=== PATIENT | female | born 1985 | race Caucasian/White ===

== ENCOUNTER 2018-03-21 05:33 | Day surgery (SDC) | payer OTHER ==
[2018-03-21] VITALS (12 sets, daily range): BP systolic 102–133; BP diastolic 56–66; PULSE 52–64; RESP 16–28; Ht 175.3 cm; Wt 93.0 kg
[~2018-03-21] VITALS: Ht 175.3 cm; Wt 93.0 kg
[~2018-03-21 05:33] MED LIST: BUPIVACAINE 0.5%/EPI (SDV) 30 ML INJ INJ ONE
[2018-03-21] MEDS ORDERED: BUPIVACAINE 0.5%/EPI (SDV) 30 ML INJ ONE (06:59)
[2018-03-21] MEDS ORDERED: DESFLURANE 15 MIN ONE (07:00)
[2018-03-21] MEDS ORDERED: GLYCOPYRROLATE 0.4 MG INJ ONE (07:00)
--- NOTE | 2018-03-21 07:23 | PREAC ---
Date/Time of Note Date/Time of Note DATE: 03/21/18 TIME: 07:22 Anesthesia Eval and Record Evaluation Time Pre-Procedure Interview DATE: 03/21/18 TIME: 07:22 Age 33 Sex female NPO: 8 hrs Preoperative diagnosis request for sterilization Planned procedure lap btl Past Medical History Past Medical History: Includes GI: Obesity Surgery & Anesthesia Issues No known issue (D&C) Meds Anticoagulation: No Beta Clarke within 24 hr: No Reason Beta Clarke not given: Pt. not on B-Clarke No Active Prescriptions or Reported Meds Meds reviewed: Yes Allergies Coded Allergies: No Known Allergy (Unverified , 03/21/18) Allergies Reviewed: Yes Labs/Studies Labs Reviewed: Reviewed by anesthesiologist Result Diagram: 03/21/1861403/21/1815 Laboratory Tests 03/21/18 06:15 test: Negative Pre-procedure Exam Last vitals Vital Signs Date Temp Pulse Resp B/P (MAP) Pulse Ox O2 O2 Flow FiO2 Time Delivery Rate 03/21/18 98.7 62 16 120/66 100 Room Air 06:23 (84) Airway: Adequate mouth opening, Adequate thyromental dist Mallampati: Mallampati II Teeth: Normal Lung: Normal Heart: Normal ASA Physical Status ASA physical status: 2 Emergency: None Planned Anesthetic General/MAC: ETT Planned Pain Management Single shot nerve block, Parenteral pain med, Local by surgeon Pre-operative Attestations Prior to commencing anesthesia and surgery, the patient was re-evaluated, there was verification of: *The patient's identity *The results of appropriate recent lab work and preoperative vital signs *The above evaluation not changing prior to induction *Anesthetic plan, risk benefits, alternative and complications discussed with patient/family; questions answered; patient/family understands, accepts and wi shes to proceed. Luis Peters M.D. Mar 21, 2018 07:23
[2018-03-21] MEDS ORDERED: EPHEDrine SULFATE 50 MG/5 ML SYG IV PRN (07:30)
[2018-03-21] MEDS ORDERED: LABETALOL HCL 20MG INJ IV PRN (07:30)
[2018-03-21] MEDS ORDERED: DIPHENHYDRAMINE 50 MG INJ IV PRN (07:30)
[2018-03-21] MEDS ORDERED: TRIMETHOBENZAMIDE 100 MG/ML VIAL IM PRN (07:30)
[2018-03-21] MEDS ORDERED: ALBUTEROL 0.083% (NEB) 2.5 MG/3 ML AMP HHN PRN (07:30)
[2018-03-21] MEDS ORDERED: ONDANSETRON 4 MG INJ IV PRN (07:30)
[2018-03-21] MEDS ORDERED: HYDROmorphONE 1 MG/5 ML IV SYRINGE IV PRN ×3 (07:30)
[2018-03-21] MEDS ORDERED: MIDAZOLAM 1 MG/ML 2 ML INJ IV PRN (07:30)
[2018-03-21] MEDS ORDERED: hydrALAzine 20 MG INJ IV PRN (07:30)
[2018-03-21] MEDS ORDERED: FENTAnyl 50 MCG/ML VIAL IV PRN ×3 (07:30)
[2018-03-21] MEDS ORDERED: IPRATROPIUM (NEB) 0.5 MG/2.5 ML AMP HHN PRN (07:30)
[2018-03-21] MEDS ORDERED: OXYCODONE/ACETAMINOPHEN (5/325) TAB PO PRN ×2 (07:30)
[2018-03-21] MEDS ORDERED: MEPERIDINE 25 MG INJ IV PRN (07:30)
[2018-03-21] MEDS ORDERED: ROCURONIUM 50 MG INJ ONE (07:33)
[2018-03-21] MEDS ORDERED: FENTAnyl 50 MCG/ML VIAL ONE (07:33)
[2018-03-21] MEDS ORDERED: NEOSTIGMINE 3 MG/3 ML SYRINGE ONE (07:33)
[2018-03-21] MEDS ORDERED: CEFAZOLIN 1 GM INJ ONE (07:33)
[2018-03-21] MEDS ORDERED: MIDAZOLAM 1 MG/ML 2 ML INJ ONE (07:33)
[2018-03-21] MEDS ORDERED: PROPOFOL 20 ML ONE (07:33)
[2018-03-21] MEDS ORDERED: ONDANSETRON 4 MG INJ ONE (07:34)
[2018-03-21] MEDS ORDERED: DEXAMETHASONE 4 MG/ML 5 ML INJ ONE (07:36)
[2018-03-21] MEDS ORDERED: BUPIVACAINE 0.5%/EPI (SDV) 30 ML INJ INJ ONE (08:21)
[2018-03-21] MEDS ORDERED: METOCLOPRAMIDE 10 MG INJ ONE (08:37)
--- NOTE | 2018-03-21 08:43 | OPR ---
Date/Time of Note Date/Time of Note DATE: 03/21/18 TIME: 08:41 Operative Report Procedure Date: Mar 21, 2018 Preoperative Diagnosis Patient desires permanent sterilization. Postoperative Diagnosis Patient desires permanent sterilization. Operation/Procedure Performed Laparoscopic fulguration and transection of bilateral tubes. Surgeon Anam Johnson MD Dock Operator none Anesthesia Type: general Estimated Blood Loss: minimal Transfusion none Specimen none Grafts/Implants none Tubes/Drains none Complications none Pt Condition Post Procedure: stable Disposition: PACU Procedure Description FINDINGS: Normal tubes, ovaries bilaterally. Normal uterus. CONSENT: Please see my preop H and P consent in the office for the consent process. DESCRIPTION OF PROCEDURE: She was taken to operating room and general anesthesia was induced. She was prepped and draped in the usual sterile fashion in dorsal lithotomy position. Surgical time-out was done. Anterior lip of the cervix was grasped using a single-tooth tenaculum, and a HUMI was inserted in normal fashion. The tenaculum was removed. There was no bleeding from the cervix. The patient already had a Castano catheter as well. Gloves were changed. A 5 mm incision was developed inside the umbilicus. A blunt trocar was inserted in the normal fashion. Intraperitoneal position was confirmed using the laparoscope. Pneumoperitoneum was obtained. The patient was placed in Trendelenburg position. A second trocar was inserted under direct visualization of the laparoscope at the pubic hairline in the midline. A 5 cm mid ampullary region of the right tube was coagulated. Complete desiccation of the entire diameter of tube was visualized. The middle of the coagulated portion was cut. There was no bleeding. Same procedure was done on the contralateral side. All instruments removed under direct visualization of the laparoscope after pneumoperitoneum was released. There was no bleeding. Skin closed using 4-0 Monocryl. Then 10 mL 0.25% Marcaine with epinephrine was injected at the incision sites. HUMI was removed. There was no bleeding from the vagina. Patient tolerated the procedure well. ANAM JOHNSON MD Mar 21, 2018 08:43
--- NOTE | 2018-03-21 08:52 | PAC ---
Date/Time of Note Date/Time of Note DATE: 03/21/18 TIME: 08:52 Post-Anesthesia Notes Post-Anesthesia Note Last documented vital signs Vital Signs Date Temp Pulse Resp B/P (MAP) Pulse Ox O2 O2 Flow FiO2 Time Delivery Rate 03/21/18 98.7 62 16 120/66 100 Room Air 06:23 (84) Activity: WNL Respiratory function: WNL Cardiovascular function: WNL Mental status: Baseline Pain reasonably controlled: Yes Hydration appropriate: Yes Nausea/Vomiting absent: Yes Luis Peters M.D. Mar 21, 2018 08:52
== END 2018-03-21 10:50 | disposition home or self-care (01) ==
LOC: SDS 05:33
PROVIDERS: ATTEND Specialist
DX: Z30.2 Encounter for sterilization (principal)
CPT/HCPCS: 58670; 80053; 85025; 85610; 85730; J0690; J1100; J1170; J2175; J2250; J2405; J2710; J3010; Z7512; Z7610; J2765